=== PATIENT | male | born 1995 | race American Indian/Alaskan Native ===

== ENCOUNTER 2017-07-20 16:28 | Emergency (ER) | payer SELFPAY ==
[2017-07-20 16:57] VITALS: BP 132/67
--- NOTE | 2017-07-20 16:58 | Emergency Department Report ---
Stated Complaint: ABSCESS IN RECTUM Time Seen by Provider: 07/20/17 16:55 - HPI History of Present Illness: Patient is a 22 y/o male who presents due to abscess in buttocks x 5 days. Patient denies any fever or chills. Patient states that he has been sweating a lot. Patient denies any h/o diabetes. - ROS Review of Systems: abscess in buttocks. - Exam Physical Exam: alert and oriented x 3, NAD MSE screening note: Focused history and physical exam performed. Due to findings the following was ordered: ED Disposition for MSE Condition: Stable
--- NOTE | 2017-07-20 19:32 | Emergency Department Report ---
- General Chief Complaint: Skin/Abscess/Foreign Body Stated Complaint: ABSCESS IN RECTUM Time Seen by Provider: 07/20/17 18:46 Source: patient Mode of arrival: Ambulatory Limitations: No Limitations - Related Data Allergies Allergy/AdvReac Type Severity Reaction Status Date / Time No Known Allergies Allergy Unverified 05/13/15 04:57 ED Review of Systems ROS: Stated complaint: ABSCESS IN RECTUM Other details as noted in HPI ED Past Medical Hx - Past Medical History Previous Medical History?: No - Surgical History Past Surgical History?: No - Social History Smoking Status: Never Smoker Substance Use Type: None ED Physical Exam - General Limitations: No Limitations ED Course Vital Signs 07/20/17 16:55 Temperature 98.5 F Pulse Rate 111 H Respiratory 16 Rate Blood Pressure 132/67 O2 Sat by Pulse 100 Oximetry Critical care attestation.: If time is entered above; I have spent that time in minutes in the direct care of this critically ill patient, excluding procedure time. ED Disposition Condition: Stable Referrals: PRIMARY CARE [Primary Care Provider] - 3-5 Days
== END 2017-07-20 23:06 | disposition left against medical advice (07) ==
LOC: ED 16:28
DX: K62.89 Other specified diseases of anus and rectum (principal); Z53.21 Procedure and treatment not carried out due to patient leaving prior to being seen by health care provider